=== PATIENT | male | born 1960 | race Caucasian/White ===

== ENCOUNTER 2017-09-17 17:47 | Emergency (ER) | payer MEDICAID, OTHER ==
[~2017-09-17] VITALS: Ht 177.8 cm; Wt 68.0 kg
--- NOTE | 2017-09-17 17:50 | NUR ---
BIB [facility] C/O WITNESSED SEIZURE IN SHOWER, PT STATES HE HAS STOPPED TAKING XANAX. NAD NOTED, VSS, RESP EVEN AND UNLABORED, PT WAS PUT ON MONITOR. AT BS.
[2017-09-17] MEDS ORDERED: IV NS 0.9% 1,000 ML BAG IV ONE (18:30)
[2017-09-17 18:43] LABS: BASOPHILS % (AUTO) 0.3 % (0.0-2.0); EOSINOPHILS % (AUTO) 0.1 % (0.0-6.0); HEMATOCRIT 46 % (39-51); HEMOGLOBIN 15.2 g/dL (13.5-17.5); LYMPHOCYTES % (AUTO) 8.2 % (20.0-44.0); MEAN CORPUSCULAR HGB CONC 33 g/dl (31.0-36.0); MEAN CORPUSCULAR VOLUME 76 fL (80-96); MONOCYTES # (AUTO) 0.6 /CMM (0.1-1.30); MONOCYTES % (AUTO) 4.9 % (2.0-12.0); NEUTROPHILS # (AUTO) 10.4 /CMM (1.8-8.9); NEUTROPHILS % (AUTO) 86.5 % (43.0-81.0); PLATELET COUNT (AUTO) 298 /CMM (150-450); RDW COEFFICIENT OF VARIATION 13.8 (11.5-15.0); RED BLOOD CELL COUNT(AUTO) 6.01 MIL/uL (4.5-6.0)
[2017-09-17 18:58] LABS: CALCIUM, SERUM 9.7 mg/dL (8.5-10.1); CREATININE 1.9 mg/dL (0.6-1.3); POTASSIUM 4.2 mmol/L (3.5-5.1)
--- NOTE | 2017-09-17 19:43 | NUR ---
PT UNABLE TO GIVE URINE SAMPLE AT THIS MOMENT.
[2017-09-17 20:25] VITALS: BP 127/60
--- NOTE | 2017-09-17 20:26 | NUR ---
Patient discharged to home in stable condition. Written and verbal after care instructions given. Patient verbalizes understanding of instruction.IV removed. Catheter intact and site benign. Pressure and 4x4 applied to site. No bleeding noted.
== END 2017-09-17 20:30 | disposition home or self-care (01) ==
LOC: ER 17:51
DX: R55 Syncope and collapse (principal); E86.0 Dehydration; N17.9 Acute kidney failure, unspecified; G89.29 Other chronic pain; M54.30 Sciatica, unspecified side
CPT/HCPCS: 36415; 71045; 80048; 85025; 93005; 96360; 99285; A4606; J7030; Z7610

== ENCOUNTER 2019-05-13 14:49 | Inpatient (IN) | payer OTHER ==
[~2019-05-13] VITALS: Ht 175.3 cm; Wt 81.2 kg
[2019-05-13] MEDS ORDERED: DIAZEPAM 5 MG/ML 2 ML DISP.SYRIN IM ONE (15:30)
[2019-05-13] MEDS ORDERED: KETOROLAC TROMETHAMINE INJ 60 MG/2 ML VIAL IM ONE ×2 (15:30→15:40)
[2019-05-13] MEDS ORDERED: DIAZEPAM 10 MG TABLET ONE (15:44)
[2019-05-13] MEDS ORDERED: DIAZEPAM 10 MG TABLET PO ONE (16:00)
[2019-05-13] MEDS ORDERED: HYDROMORPHONE 1 MG/1 ML DISP.SYRIN ONE ×2 (16:14→20:37)
[2019-05-13] MEDS ORDERED: METHOCARBAMOL (500MG) 500 MG TABLET ONE (16:30)
[2019-05-13] MEDS ORDERED: METHOCARBAMOL (750MG) 750 MG TABLET PO SCH (16:30)
[2019-05-13] MEDS ORDERED: HYDROMORPHONE INJ 0.5 MG/0.5 ML SYRINGE IM ONE ×2 (16:30→20:30)
[2019-05-13] MEDS ORDERED: LORAZEPAM INJ 2 MG/ML VIAL ONE (19:20)
[2019-05-13] MEDS ORDERED: LIDOCAINE 5% (PATCH) 1 EA PATCH TP SCH (19:30)
[2019-05-13] MEDS ORDERED: LORAZEPAM INJ 2 MG/ML VIAL IM ONE (19:30)
--- NOTE | 2019-05-13 19:30 | NUR ---
ASSUMED CARE FOR PATIENT AT THIS TIME
--- NOTE | 2019-05-13 19:31 | NUR ---
PT BIBRA FROM HOME C/O LOWER BACK PAIN S/P HEAVY LIFTING (APPROX 90 LBS) PT AAOX4. RESPIRATIONS EVEN AND UNLABORED. SKIN INTACT. VITAL SIGNS STABLE. NO ACUTE DISTRESS NOTED AT THIS TIME. WILL CONTINUE TO MONITOR
--- NOTE | 2019-05-13 23:15 | NUR ---
ATTEMPTED TO ASSIST PATIENT TO AMBULATE, PT UNABLE TO BEAR WEIGHT AND FEELS UNCOMFORTABLE. ER PA AWARE
[2019-05-13 23:45] LABS: BASOPHILS % (AUTO) 0.7 % (0.0-2.0); EOSINOPHILS % (AUTO) 0.4 % (0.0-6.0); HEMATOCRIT 43 % (39-51); HEMOGLOBIN 13.8 g/dL (13.5-17.5); LYMPHOCYTES % (AUTO) 34.6 % (20.0-44.0); MEAN CORPUSCULAR HGB CONC 32 g/dl (31.0-36.0); MEAN CORPUSCULAR VOLUME 78 fL (80-96); MONOCYTES # (AUTO) 0.4 /CMM (0.1-1.30); MONOCYTES % (AUTO) 7.8 % (2.0-12.0); NEUTROPHILS # (AUTO) 3.2 /CMM (1.8-8.9); NEUTROPHILS % (AUTO) 56.5 % (43.0-81.0); PLATELET COUNT (AUTO) 203 /CMM (150-450); RED BLOOD CELL COUNT(AUTO) 5.52 MIL/uL (4.5-6.0); WHITE BLOOD COUNT (AUTO) 5.7 K/uL (4.3-11.0)
[2019-05-13 23:54] LABS: CALCIUM, SERUM 8.4 mg/dL (8.5-10.1); CREATININE 1.1 mg/dL (0.6-1.3)
--- NOTE | 2019-05-14 00:03 | NUR ---
MED-SURGE 209
[2019-05-14] MEDS ORDERED: IV 1/2NS 1000 ML 1,000 ML IV PRN (00:15)
--- NOTE | 2019-05-14 00:19 | NUR ---
REPORT GIVEN TO RONNELL MELGOZA FOR TALIB
--- NOTE | 2019-05-14 00:24 | NUR ---
[facility]
[2019-05-14 00:25] VITALS: BP 131/83
[2019-05-14] MEDS ORDERED: HYDROCODONE/APAP 5/325MG 1 EACH TABLET PO PRN (00:30)
[2019-05-14] MEDS ORDERED: IBUPROFEN 600 MG TABLET PO PRN (00:30)
[2019-05-14] MEDS ORDERED: KETOROLAC TROMETHAMINE 10 MG TABLET PO PRN (00:30)
[2019-05-14] MEDS ORDERED: ONDANSETRON HCL/PF 4 MG/2 ML VIAL IVP PRN (00:30)
[2019-05-14] MEDS ORDERED: MAGNESIUM HYDROXIDE 30 ML UDC PO PRN (00:30)
[2019-05-14] MEDS ORDERED: MAG HYDROX/AL HYDROX/SIMETH 30 ML UDC PO PRN (00:30)
[2019-05-14] MEDS ORDERED: ACETAMINOPHEN 325 MG TABLET PO PRN (00:30)
[2019-05-14] MEDS: DEXAMETHASONE SOD PHOSPHATE 4 MG/ML VIAL IV SCH ×2 (00:39→08:45)
[2019-05-14] MEDS: CARISOPRODOL 350 MG TABLET PO SCH ×2 (00:39→08:17)
[2019-05-14] MEDS: HYDROMORPHONE INJ 2 MG/ML DISP.SYRIN IV PRN ×2 (01:05→05:31)
--- NOTE | 2019-05-14 03:48 | NUR ---
MS2/RN AT 0025, RECEIVED PATIENT FROM . VIA [facility] TO BE ADMITTED FOR INTRACTABLE LOW BACK PAIN. PATIENT WAS AWAKE, ALERT, ORIENTED, WITH C/O LOW BACK PAIN 8/, MEDICATED WITH DILAUDID 1 MG IV ORDERED, DUE MEDS WERE GIVEN. ADMISSION DONE PER PROTOCOL, SKIN ASSESSMENT WAS DONE, PLAN OF CARE DISCUSSED, VERBALIZED UNDERSTANDING AND AGREEMENT, TAUGHT HOW TO USE THE CALL LIGHT AND PLACED IT AT BEDSIDE WITHIN REACH. MEDICATED ALSO WITH MAALOX ORDERED FOR C/O ABDOMINAL DISCOMFORT, (SEE EMAR FOR TIME OF ADMIN). PRESENTLY, PATIENT IS SLEEPING, AROUSABLE, APPEAR COMFORTABLE, NO SIGNS OF DISTRESS NOTED, CALL LIGHT IN REACH. WILL MONITOR.
--- NOTE | 2019-05-14 06:13 | NUR ---
MS2/RN PATIENT IS SLEEPING AT THIS TIME, APPEAR COMFORTABLE, NO SIGNS OF DISTRESS NOTED, CALL LIGHT IN REACH, ALL NEEDS ATTENDED AT THIS TIME, WILL CONTINUE TO MONITOR.
--- NOTE | 2019-05-14 07:15 | NUR ---
RN OPENING NOTES RECEIVED PATIENT IN THE ROOM SITTING ON THE CHAIR. A/OX3, ABLE TO MAKE NEEDS KNOWN. NOT IN ANY FORM OF DISTRESS. NO SOB. TOLERATING BACK PAIN AT THIS TIME. KEPT PATIENT SAFE AND COMFORTABLE. BED IN LOW/LOCKED POSITION, SIDERAILS UPX2, CALL LIGHT IN REACH. WILL CONT TO MONITOR ACCORDINGLY.
[2019-05-14 08:00] VITALS: BP 145/92
--- NOTE | 2019-05-14 10:30 | NUR ---
RN NOTES: AMA PATIENT LEFT AGAINST MEDICAL ADVICE. PER PATIENT, HE WANTED TO GO HOME AND REST INSTEAD. STATED THAT HE "FEELS BETTER NOW.". EXPLAINED RISK OF LEAVING AMA BUT PATIENT STILL ADAMANT TO LEAVE THE HOSPITAL. AMA FORM SIGNED. EXITCARE AND PAPERWORK PROVIDED. ALL BELONGINGS RETURNED, BELONGINGS FORM SIGNED. IV ACCESS REMOVED, TIP INTACT. NAMEBAND REMOVED. ACCOMPANIED TO THE LOBBY, PICKED UP BY . DR EL IS AWARE. LINE SERVER NOTIFIED.
[2019-05-14 15:11] LABS: APPEARANCE,URINE CLEAR (CLEAR); BILIRUBIN,URINE NEGATIVE (NEGATIVE); BLOOD, URINE NEGATIVE Ery/uL (NEGATIVE); COLOR,URINE YELLOW (YELLOW); KETONES,URINE TRACE (NEGATIVE); LEUKOCYTE ESTERASE ,URINE NEGATIVE (NEGATIVE); NITRITE, URINE NEGATIVE (NEGATIVE); PROTEIN,URINE TRACE mg/dl (NEGATIVE); UGLUCOSE NEGATIVE (NEGATIVE); UROBILINOGEN,URINE 0.2 EU/dL (0.2)
[2019-05-14 16:11] LABS: BACTERIA,URINE Rare /HPF (None Seen); RBC,URINE 0-2 /HPF (0-2); SQUAMOUS EPITHELIAL CELL,UR 0-2 /HPF (None Seen); WBC,URINE 0-2 /HPF (0-3)
[2019-05-14 16:12] LABS: MUCUS,URINE Few /LPF (None Seen)
== END 2019-05-14 10:33 | disposition left against medical advice (07) | DRG 347 ==
LOC: ER 14:55 → MEDSG2 05-14 00:13
PROVIDERS: ADMIT Nurse Practitioner Acute Care; ATTEND Nurse Practitioner Acute Care
DX: M48.061 Spinal stenosis, lumbar region without neurogenic claudication (principal); G89.4 Chronic pain syndrome; M54.30 Sciatica, unspecified side
CPT/HCPCS: 36415; 72100-TC; 72131-TC; 80048-TC; 81000-TC; 85025-TC; 87081-TC; G0378; J1100; J1170; J1885; J2060; J2405; J3490